=== PATIENT | male | born 1960 | race Caucasian/White ===

== ENCOUNTER 2017-06-12 07:04 | Day surgery (SDC) | payer MEDICARE, BC ==
--- NOTE | 2017-06-12 08:13 | Operative Note ---
Upper GI Endoscopy Procedure date: 06/12/17 Date of : 62 Procedure:Upper GI Endoscopy Esophagogastroduodenoscopy with cold biopsies and TTS balloon dilation Indications: Mr. Hanks is a 57-year-old gentleman with dyspepsia. He reports epigastric abdominal discomfort with bloating, marked belching and globus sensation. He has frequent clearance of the throat. He reports moderate early satiety. The patient has taken Nexium and Zantac without relief. He has to drink a bottle of Maalox. He has ongoing symptoms of heartburn and reflux. He has mild nausea. He reports 2-3 bowel movements daily. He did undergo upper endoscopy with Dr. Remington Pemberton in December 2015 and had gastritis and duodenitis with small hiatal hernia. He had a colonoscopy in 2010 showing colonic polyps. Performing Provider: Renea Gil MD Referring Provider: Ari Arriaza M.D. Sedation: MAC sedation Procedure: Prior to the procedure, a history and physical exam was performed, and patients medications and allergies were reviewed. The risks and benefits of the procedure and the sedation options and risks were discussed with the patient. All questions were answered and informed consent was obtained. The patient was brought to the procedure room. Patient identification and proposed procedure were verified by the physician and the nurse. The patient was placed in a left lateral decubitus position and the scope was passed under direct vision. Throughout the procedure, the patient's blood pressure, pulse, and oxygen saturations were monitored continuously. The endoscope was introduced through the mouth, and advanced to the second part of duodenum. The upper GI endoscopy was accomplished without difficulty. The patient tolerated the procedure well. Findings: The scope was passed directly into the upper esophagus and advanced to the third portion of the duodenum. The post bulbar duodenum and duodenal bulb were normal with normal mucosa and conniventes. The scope was withdrawn through a normal duodenal bulb and pylorus into the stomach. There was mild pylorospasm. There was linear erythema of the antrum and body of the stomach. The remainder of the antrum, body and fundus of the stomach were grossly normal. Upon retroflexion there was a very small 1-2 cm hiatal hernia. 2 biopsies were taken in the antrum and along the lesser curvature for histology. The scope was then withdrawn into the esophagus. There was a serrated Z line. There were tertiary contractions and evidence of mild esophageal dysmotility. The entire esophagus was dilated to 60 Swedish/20 mm with a TTS hydrostatic balloon. There was some resistance at the cricopharyngeus/cricopharyngeal spasm. The remainder of the esophageal mucosa was normal. Immediate complications: None EBL (ml): 0 Impression: 1. 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 Linear reactive gastritis with mild pylorospasm Recommendations: I will follow up the biopsies. 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 I do feel that he would benefit from dietary measures, promotility therapy and treatment for visceral sensitivity. We will discuss additional options and follow-up. at [id number]
[2017-06-12 09:45] VITALS: BP 135/93
== END 2017-06-12 08:55 | disposition home or self-care (01) ==
LOC: SDC 07:04
PROVIDERS: Internal Medicine Gastroenterology
PROC: 0D758ZZ Dilation of Esophagus, Via Natural or Artificial Opening Endoscopic (ICD-10-PCS; 2017-06-12)
PROC: 0DB68ZX Excision of Stomach, Via Natural or Artificial Opening Endoscopic, Diagnostic (ICD-10-PCS; principal; 2017-06-12 08:00)
DX: K22.4 Dyskinesia of esophagus (principal); K21.9 Gastro-esophageal reflux disease without esophagitis; J39.2 Other diseases of pharynx; K29.60 Other gastritis without bleeding
CPT/HCPCS: C1726